=== PATIENT | female | born 1985 | race American Indian/Alaskan Native ===

== ENCOUNTER 2022-05-14 18:52 | Observation (INO) | payer OTHER ==
[~2022-05-14] VITALS: Ht 154.9 cm; Wt 100.0 kg
[2022-05-14] MEDS ORDERED: LACTULOSE10 GM/151 PO (19:29)
--- OUTSIDE RECORDS SUMMARY | 2022-05-14 20:52 | XMS ---
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 Scooter VISIT COUNT (12 MO[address] 5 [facility] TOTAL 6 NOTE: Visits indicate total known visits. ED/UCC VISIT TRACKING (12 MO.) 05/14/2022 18:[address] [facility] [place] TYPE: Emergency COMPLAINT: - ALTERED LOC 11/17/2021 01:35 [facility] [place] TYPE: Emergency DIAGNOSES: - Chronic hepatic failure without coma - Hepatic failure, unspecified without coma - Altered Mental Status - Weakness - Generalized 11/09/2021 02:10 [facility] [place] TYPE: Emergency DIAGNOSES: - Hepatic failure, unspecified without coma - Altered Mental Status - Disorder of urea cycle metabolism, unspecified - Altered mental status, unspecified - Weakness Genralized 10/18/2021 15:27 [facility] [place] TYPE: Emergency DIAGNOSES: - Sepsis, unspecified organism - Weakness - Generalized - Nutritional anemia, unspecified - Generalized edema - Unspecified jaundice - Hepatic failure, unspecified without coma - Unspecified cirrhosis of liver - Leg Swelling - Other specified abnormal findings of blood chemistry 10/02/2021 13:17 [facility] [place] TYPE: Emergency DIAGNOSES: - Alcoholic cirrhosis of liver with ascites - Ascites - Fatigue - Unspecified jaundice - Other disorders of bilirubin metabolism - Body ache - Anemia, unspecified - Hepatic failure, unspecified without coma - Hypo-osmolality and hyponatremia - Hypokalemia - COVID-19 - Generalized Body Aches - Cystitis, unspecified without hematuria 06/20/2021 05:33 [facility] [place] TYPE: Emergency DIAGNOSES: - Unspecified abdominal pain - Abdominal Pain INPATIENT VISIT TRACKING (12 MO.) [facility] DIAGNOSES: - Alcoholic hepatitis with ascites - Gastrointestinal hemorrhage, unspecified - Encounter for palliative care - Alcoholic cirrhosis of liver with ascites - Hepatic failure, unspecified without coma - Chronic hepatic failure without coma 10/18/2021 23[facility] DIAGNOSES: - Unspecified cirrhosis of liver - Bacteremia - Hepatic failure, unspecified without coma 10/02/2021 18[facility] DIAGNOSES: - Unspecified cirrhosis of liver - Other ascites - Hypo-osmolality and hyponatremia - Hepatic failure, unspecified without coma - Gastrointestinal hemorrhage, unspecified - Alcoholic hepatitis with ascites - Alcoholic cirrhosis of liver with ascites - Ascites, Liver Failure 06/20/2021 10:04 [facility] [place] TYPE: Medical Surgical DIAGNOSES: - Gastrointestinal hemorrhage, unspecified - Acute posthemorrhagic anemia - abdominal pain - Alcoholic cirrhosis of liver with ascites - Chronic or unspecified gastric ulcer with hemorrhage [email or web address]
[2022-05-15] MEDS ORDERED: LACTULOSE10 GM/151 PO (10:31)
[2022-05-15] MEDS ORDERED: SODIUM BICARBO650 MG PO (10:32)
== END 2022-05-15 11:00 | disposition home or self-care (01) ==
LOC: ED 18:52 → CCU 18:54
PROVIDERS: ADMIT Internal Medicine; ATTEND Internal Medicine
DX: K72.10 Chronic hepatic failure without coma (principal); K70.30 Alcoholic cirrhosis of liver without ascites; E87.5 Hyperkalemia; E87.2 Acidosis; Z20.822 Contact with and (suspected) exposure to COVID-19; N17.9 Acute kidney failure, unspecified; D69.6 Thrombocytopenia, unspecified
CPT/HCPCS: 36415; 80048; 80053; 81001; 82140; 82803; 83690; 83880; 84703; 85025; 85060; 85610; 87502; J7030; J7070; U0003